=== PATIENT | female | born 1945 | race Caucasian/White ===

== ENCOUNTER → 2019-11-27 14:02 | Outpatient (POV) | payer MEDICARE, SELFPAY | PROVIDERS: PCP Family Medicine; Visit Provider Dermatology | DX: Z00.00 Encounter for general adult medical examination without abnormal findings (principal) ==

== ENCOUNTER 2024-03-31 01:47 | Emergency (ER) | payer MEDICARE, SELFPAY ==
[2024-03-31] VITALS (31 sets, daily range): BP systolic 57–124; BP diastolic 25–62; PULSE 100–128; RESP 18–26; TEMP 35–37.2; O2SAT 97–100; BMI 24.9
--- NOTE | 2024-03-31 01:43 | ECG_ITS ---
APPROVED REPORT Exam: Resting ECG HR:65 bpm ECG Measurements Heart Rate 65 AXES QRSd 199 QRS 99 QT 419 T 32 QTc 430 Conclusion ATRIAL FIBRILLATION WITH ABERRANT CONDUCTION OR VENTRICULAR PREMATURE COMPLEXES INTRAVENTRICULAR CONDUCTION DELAY [130+ ms QRS DURATION] POSSIBLE RIGHT VENTRICULAR HYPERTROPHY [SOME/ALL OF: PROMINENT R IN V1, LATE TRANSITION, RAD, ELIS, SSS] ABNORMAL ECG UNCONFIRMED REPORT Electronically signed by : JOSE ALFREDO LUX, 04/01/2024 02:36:01
[2024-03-31] MEDS: LACTATED RINGERS 1000ML 1,000 ML 999 ML IV ×3 (01:45→02:31)
[2024-03-31] MEDS: INSULIN HUMAN REGULAR 100 UNITS/ML 10ML VIAL 10 UNIT IVP (01:55)
[2024-03-31] MEDS: SODIUM BICARB 8.4% 50ML SYRINGE (CRASH CART) 100 MEQ IV (01:55)
[2024-03-31] MEDS: CALCIUM GLUC IN NACL, ISO-OSM 1 GM/50 ML BAG IV (01:56)
[2024-03-31] MEDS: EPINEPHrine 1MG/ML 30ML VIAL IV (01:58)
[2024-03-31] MEDS: ETOMIDATE 40MG/20ML VIAL 20 MG IV (02:10)
[2024-03-31] MEDS: ROCURONIUM BROMIDE 50MG/5ML VIAL 60 MG IV (02:11)
[2024-03-31] MEDS: propofoL 100 ML 7.89 MG IV (02:18)
--- NOTE | 2024-03-31 02:19 | XR_ITS ---
PROCEDURE INFORMATION: Exam: XR Chest Exam date and time: 03/31/2024 2:20 AM Age: 78 years old Clinical indication: Other: AMS; Additional info: AMS, intubation TECHNIQUE: Imaging protocol: Radiologic exam of the chest. Views: 1 view. COMPARISON: No relevant prior studies available. FINDINGS: Tubes, catheters and devices: ET tube is in good position. Lungs: The lungs are clear. Pleural spaces: Unremarkable. No pleural effusion. No pneumothorax. Heart/Mediastinum: Unremarkable. No cardiomegaly. Bones/joints: Unremarkable. IMPRESSION: ET tube is in good position. The lungs are clear.
--- NOTE | 2024-03-31 02:23 | HMH.EDGENADL ---
Discharge Plan Disposition Patient Disposition: Xfer Other Referrals Follow up/Referrals: Provider,Referral, MD [Primary Care Provider] - See instructions Clinical Impressions Clinical Impression: DKA (diabetic ketoacidosis), AMS (altered mental status), Shock circulatory Stand Alone Forms Stand Alone Forms: Transfer Record - ED Instructions Patient Instructions: DI for Altered Mental Status Print Language Print Language: [place] Discharge ED Provider: Selvin Natarajan General Adult HPI General Chief complaint: Altered Mental Status Stated complaint: hyperglycemia Time Seen by Provider: 03/31/24 01:50 History of Present Illness HPI narrative: 78-year-old female with history of insulin-dependent diabetes, hypertension hypercholesterolemia, rehab admission for recent right hip fracture presents with altered mental status and shock presumably in DKA. History obtained from EMS, family, nursing report. Patient has reportedly been feeling more dry and was concerned that she had a yeast infection according to the daughter. EMS was called to the rehab facility for unresponsive patient. On EMS arrival she was hypoxic in the 70s, hypotensive with systolic in the 50s, minimally responsive, blood sugar too high to read. Related Data Allergies Allergy/AdvReac Type Severity Reaction Status Date / Time No Known Allergies Allergy Verified 03/31/24 02:53 [facility] Disclaimer: The information contained in this section may have been updated after the patient was seen, as this information can be updated by other users. Social History Smoking Status: Unknown if ever smoked alcohol intake: never current occupational status: retired Travel in the last 8 weeks: None ROS Obtained: Yes All systems reviewed & no additional complaints except as documented Physical Exam General General appearance: obtunded Comment: No response to pain Head Head exam: atraumatic and normocephalic Eye Eye exam: Present normal appearance, PERRL and EOMI ENT ENT exam: Present mucous membranes dry; Absent normal oropharynx Neck Neck exam: Present normal inspection and full ROM Chest Chest inspection: Present normal inspection and symmetric chest wall rise Respiratory Respiratory exam: Present respiratory distress (Irregular deep breathing) Cardiovascular Cardiovascular exam: Present tachycardia and irregular rhythm Abdominal Exam Abdominal exam: Present soft; Absent distention or guarding Extremities Exam Extremities exam: Present normal inspection; Absent edema or joint swelling Back Exam Back exam: Present normal inspection; Absent tenderness Neurological Exam Neurological exam: Present other (GCS 6, no response to painful stimuli) Skin Skin exam: Present warm and pallor Lymphatic Lymphatic Findings: no adenopathy Medical Decision Making Medical Records Medical records reviewed: Yes I reviewed the patient's medical records. Screening: Per USPSTF and CDC recommendations, given the prevalence of disease in our region, it is our hospital?s policy to screen for HIV and viral Hepatitis for all patients aged 18 and over and those with ongoing risk factors. Dov Inquiry Pt receiving controlled substance: No Dov was queried for this patient: No Vital Signs: 03/31/24 01:47 03/31/24 02:30 03/31/24 02:36 Temperature 95.7 F L 95.0 F L 95.0 F L Temperature Source Rectal Pulse Rate 125 H 125 H Pulse Rate [Apical] 100 H Respiratory Rate 26 H 24 24 Blood Pressure 118/47 L 114/47 L Blood Pressure [Right Arm] 57/25 L Blood Pressure Mean [Right Arm] 35 Blood Pressure Source [Right Arm] Automatic Cuff Blood Pressure Position [Right Arm] Supine 02 Sat by Pulse Oximetry 100 100 100 Oxygen Delivery Method Non-Rebreather 03/31/24 02:39 03/31/24 02:40 03/31/24 02:40 Temperature 95.0 F L Temperature Source Pulse Rate 124 H Pulse Rate [Apical] Respiratory Rate 24 24 Blood Pressure 112/46 L Blood Pressure [Right Arm] Blood Pressure Mean [Right Arm] Blood Pressure Source [Right Arm] Blood Pressure Position [Right Arm] 02 Sat by Pulse Oximetry 100 100 100 Oxygen Delivery Method Mechanical Ventilation 03/31/24 02:45 03/31/24 02:48 03/31/24 02:54 Temperature 95.0 F L 95.0 F L 95.0 F L Temperature Source Pulse Rate 124 H 123 H 121 H Pulse Rate [Apical] Respiratory Rate 24 24 25 H Blood Pressure 112/49 L 112/46 L 113/49 L Blood Pressure [Right Arm] Blood Pressure Mean [Right Arm] Blood Pressure Source [Right Arm] Blood Pressure Position [Right Arm] 02 Sat by Pulse Oximetry 100 100 98 Oxygen Delivery Method 03/31/24 02:57 03/31/24 03:00 03/31/24 03:06 Temperature 95.0 F L 95.2 F L 95.2 F L Temperature Source Pulse Rate 128 H 124 H 123 H Pulse Rate [Apical] Respiratory Rate 24 24 24 Blood Pressure 124/51 L 111/43 L 111/46 L Blood Pressure [Right Arm] Blood Pressure Mean [Right Arm] Blood Pressure Source [Right Arm] Blood Pressure Position [Right Arm] 02 Sat by Pulse Oximetry 99 97 100 Oxygen Delivery Method 03/31/24 03:12 Temperature 95.4 F L Temperature Source Pulse Rate 123 H Pulse Rate [Apical] Respiratory Rate 24 Blood Pressure 112/47 L Blood Pressure [Right Arm] Blood Pressure Mean [Right Arm] Blood Pressure Source [Right Arm] Blood Pressure Position [Right Arm] 02 Sat by Pulse Oximetry 100 Oxygen Delivery Method Lab Data Lab results reviewed: Yes I reviewed the patient's lab results. Lab Results 03/31/24 01:40: WBC 15.4 H, RBC 3.01 L, Hgb 9.8 L, Hct 36.8 L, MCV 122.3 H, MCH 32.6 H, MCHC 26.6 L, RDW 11.6, Plt Count 683 H, MPV 10.8 H, Neut % (Auto) 82.8 H, Lymph % (Auto) 11.2, [place] % (Auto) 3.8, Eos % (Auto) 0.1, Baso % (Auto) 0.5, Neut # (Auto) 12.7 H, Lymph # (Auto) 1.7, [place] # (Auto) 0.6, Eos # (Auto) 0.0, Baso # (Auto) 0.1, Total Counted 100, Neutrophils % (Manual) 78 H, Lymphocytes % (Manual) 17, Monocytes % (Manual) 5, Platelet Estimate Normal, RBC Morphology Normal, PT 11.1, INR 0.99, Sodium 124 L, Potassium 9.1 H*, Chloride 85 L, Carbon Dioxide < 5 L*, Anion Gap 43.1 H, BUN 36 H, Creatinine 2.30 H, Estimated GFR 20 L, Est GFR ( Amer) 25 L, Glucose 1207 H*, Calcium 9.2, Magnesium 2.5 H, Total Bilirubin 1.1, AST 60 H, ALT 46, Alkaline Phosphatase 130 H, Total Creatine Kinase 97, Troponin I 0.03, Total Protein 6.1 L, Albumin 3.8, Globulin 2.3, Albumin/Globulin Ratio 1.7, Lipase 89, TSH 1.32, Thyroxine (T4) 9.1, Acetone Level Small 03/31/24 01:47: Hemoglobin A1c 9.7 H, Phosphorus 12.8 H, Magnesium 2.4 H, Urine Color Yellow, Urine Appearance Clear, Urine pH 6.0, Ur Specific [place] 1.010, Urine Protein Negative, Urine Glucose (UA) 2+, Urine Ketones 2+, Urine Blood Trace-i, Urine Nitrate Negative, Urine Bilirubin Negative, Urine Urobilinogen 0.2, Ur Leukocyte Esterase Negative, Urine RBC Occasional, Urine WBC None, Ur Squamous Epith Cells None, Urine Bacteria None, Urine Opiates Screen Negative, Urine Methadone Screen Negative, Ur Barbituates Screen Negative, Ur Phencyclidine Scrn Negative, Ur Amphetamines Screen Negative, U Benzodiazepines Scrn Negative, Urine Cocaine Screen Negative, U Marijuana (THC) Screen Negative 03/31/24 02:20: VBG pH 6.81 L, VBG pCO2 29.5 L, VBG pO2 51.2 H, VBG HCO3 4.5 L, VBG Total CO2 5.5 L, VBG O2 Saturation 60.2, VBG Base Excess -29.9 L, VBG Lactic Acid 11.9 H 03/31/24 02:47: VBG pH 6.99 L, VBG pCO2 33.5 L, VBG pO2 140.5 H, VBG HCO3 7.9 L, VBG Total CO2 8.9 L, VBG O2 Saturation 97.7 H, VBG Base Excess -23.6 L, VBG Lactic Acid 13.0 H 03/31/24 04:15: Sodium 132 L, Potassium 5.7 H D, Chloride 94 L, Carbon Dioxide 11 L, Anion Gap 32.7 H, BUN 35 H, Creatinine 1.80 H D, Estimated Creat Clear 26, Estimated GFR 27 L, Est GFR ( Amer) 33 L D, Glucose , Calcium 10.0 03/31/24 04:19: VBG pH 7.23 L, VBG pCO2 29.6 L, VBG pO2 86.7 H, VBG HCO3 12.1 L, VBG Total CO2 13.0 L, VBG O2 Saturation 95.1 H, VBG Base Excess -15.4 L, VBG Lactic Acid 8.0 H 03/31/24 01:40 03/31/24 04:15 Orders (Tests/Meds): ED MEDICATIONS Generic Name Dose Route Start Last Admin Trade Name Freq PRN Reason Stop Dose Admin Insulin Human Regular 100 unit 101 mls @ 7.07 mls/hr 03/31/24 03:00 03/31/24 02:54 / Sodium Chloride IV 04/30/24 02:59 7 unit/hr .[id number] ARLINE 7.07 mls/hr Administration Protocol 7 UNIT/HR Sodium Bicarbonate 150 meq/ 1,150 mls @ 100 mls/hr 03/31/24 03:30 03/31/24 03:14 Sodium Chloride IV 04/30/24 03:29 100 mls/hr .[id number] ARLINE Administration Norepinephrine/Dextrose 8 mg in 250 mls @ 15 mls/hr 03/31/24 04:45 03/31/24 04:54 Levophed 8mg/250ml-D5w Premix IV 04/30/24 04:44 8 mcg/min .[id number] ARLINE 15 mls/hr Administration Protocol 8 MCG/MIN Propofol 100 mls @ 3.946 mls/hr 03/31/24 05:09 03/31/24 04:42 Diprivan 10mg/Ml 100ml Bottle IV 04/30/24 05:08 20 mcg/kg/min .Q24H ARLINE 7.89 mls/hr Titration Protocol 10 MCG/KG/MIN Vancomycin/PEG/NADA/Lysine/Water 1.25 gm in 250 mls @ 125 mls/hr 03/31/24 05:15 Vancomycin 1.25gm/250ml (Peg) Premix IV 03/31/24 07:14 ONCE ONE Miscellaneous 1 each 03/31/24 02:30 03/31/24 05:13 Vancomycin Consult Request NOTAPPLIC 04/30/24 02:29 1 each CONSULT PHARMACY ARLINE Administration Sodium Chloride 3 ml 03/31/24 02:58 Sodium Chloride 3% 15ml Neb IH 04/30/24 02:57 ONCE PRN INDUCE SPUTUM COLLECTION Discontinued Medications Generic Name Dose Route Start Last Admin Trade Name Freq PRN Reason Stop Dose Admin Epinephrine HCl 0.1 mg 03/31/24 01:58 03/31/24 01:58 Epinephrine 1mg/Ml 30ml Vial IV 03/31/24 01:59 0.1 mg ONCE ONE Administration Etomidate 20 mg 03/31/24 02:21 03/31/24 02:10 Etomidate 40mg/20ml Vial IV 03/31/24 02:22 20 mg ONCE ONE Administration Lactated Ringer's 1,000 mls @ 999 mls/hr 03/31/24 02:30 03/31/24 02:31 Lactated Ringer's 1000 Ml Bag IV 03/31/24 05:30 999 mls/hr .Q1H1M ARLINE Administration Piperacillin Sod/Tazobactam 100 mls @ 200 mls/hr 03/31/24 02:22 03/31/24 06:59 Sod 4.5 gm/ Sodium Chloride IV 03/31/24 02:51 200 mls/hr ONCE ONE Administration Calcium Gluconate/Sodium Chloride 1 gm in 50 mls @ 50 mls/hr 03/31/24 02:34 03/31/24 01:56 Calcium Gluconate 1,000mg/50ml Nacl Premix IV 03/31/24 03:33 50 mls/hr ONCE ONE Administration Sodium Bicarbonate 150 meq/ 1,150 mls @ 100 mls/hr 03/31/24 02:59 03/31/24 03:41 Dextrose IV 04/30/24 02:58 Not Given .[id number] [facility] Insulin Human Regular 10 unit 03/31/24 02:20 03/31/24 01:55 Insulin Human Regular 100 Units/Ml 10ml Vial IVP 03/31/24 02:21 10 unit ONCE ONE Administration Rocuronium [place] 60 mg 03/31/24 02:20 03/31/24 02:11 Rocuronium [place] 50mg/5ml Vial IV 03/31/24 02:21 60 mg ONCE ONE Administration Sodium Bicarbonate 100 meq 03/31/24 02:20 03/31/24 01:55 Sodium Bicarb 8.4% 50ml Syringe (Crash Cart) IV 03/31/24 02:21 100 meq ONCE ONE Administration ORDERS Category Date Time Status CXR --portable [XR chest portable] Stat Exams 03/31/24 02:19 Completed CXR --portable [XR chest portable] Stat Exams 03/31/24 02:34 Completed CXR --portable [XR chest portable] Stat Exams 03/31/24 04:36 Completed Acetone, Serum (Rapid) Stat Lab 03/31/24 01:40 Completed BMP [Basic Metabolic Panel] Stat Lab 03/31/24 04:15 Completed CBC w/Auto Diff [Complete Blood Count Auto Diff] Stat Lab 03/31/24 01:40 Completed CK [Creatine Kinase] Stat Lab 03/31/24 01:40 Completed CMP [Comprehensive Metabolic Panel] Stat Lab 03/31/24 01:40 Completed Hemoglobin A1C Stat Lab 03/31/24 01:47 Completed INR [Prothrombin Time INR] Stat Lab 03/31/24 01:40 Completed Lipase Stat Lab 03/31/24 01:40 Completed Magnesium Stat Lab 03/31/24 01:40 Completed Magnesium Stat Lab 03/31/24 01:47 Completed POC Glucose,Bedside Stat Lab 03/31/24 04:02 Ordered Phosphorous Stat Lab 03/31/24 01:47 Completed T4 (Thyroxine) Stat Lab 03/31/24 01:40 Completed TSH [Thyroid Stimulating Hormone] Stat Lab 03/31/24 01:40 Completed Troponin I Q3H Lab 03/31/24 01:40 Completed UA [Urinalysis and Microscopic] Stat Lab 03/31/24 01:47 Completed UDS [Drug Screen,Urine] Stat Lab 03/31/24 01:47 Completed Blood Culture Stat Micro 03/31/24 02:47 Ordered Sputum Culture & Gram Stain Stat Micro 03/31/24 02:56 Results Urine Culture Stat Micro 03/31/24 01:47 Received VBG [Venous Blood Gas] Stat RT 03/31/24 02:20 Completed VBG [Venous Blood Gas] Stat RT 03/31/24 02:47 Completed VBG [Venous Blood Gas] Stat RT 03/31/24 04:19 Completed ECG Data Tracing #1: I reviewed this ECG and interpreted as documented below: Irregular bradycardic ventricular rhythm, no P waves noted, peaked T waves, wide QRS concerning for severe hyperkalemia ECG initial impression date: 03/31/24 ECG initial impression time: 01:44 Tracing #2: I reviewed this ECG and interpreted as documented below: Sinus tachycardia with rate of 125, T waves no longer peaked, QRS improved, now normal/borderline prolonged ECG initial impression date: 03/31/24 ECG initial impression time: 02:36 Tissue Perfus/Sepsis Re-Eval Sepsis Re-Evaluation Performed: Yes Date Performed: 03/31/24 Time Performed: 04:52 Medical Decision Narrative: 78-year-old female with history of insulin-dependent diabetes, hypertension presents from rehab facility in [place] presumably from DKA. History was obtained via interactive discussion with EMS, nursing facility,. On arrival, patient is afebrile, hypotensive with manual systolic in the 50s, hypoxic requiring nonrebreather, minimally responsive with GCS 6, blood sugar reading too high. EKG on arrival shows peaked T waves with wide QRS and irregular rhythm concerning for hyperkalemia. VBG confirms with potassium over 8, pH 6.8, bicarb undetectably low, glucose too high to read. Differential includes but is not limited to DKA, septic shock, WI, PE. Patient was initiated on multiple interventions includin L lactated ringer 2 Amp of bicarb push 1 g calcium gluconate push 10 units insulin IV push Insulin drip Bicarb drip Propofol drip Levophed drip Vancomycin Zosyn Intubation for airway protection Right IJ central Left radial arterial line Immediate interventions were made for hyperkalemia and hypotension after which EKG improved from wide-complex bradycardia to sinus tachycardia and she had significant improvement in blood pressure. Patient was intubated for airway protection after hemodynamic improvement. Intubation was somewhat traumatic. We were initially unable to visualize the airway and noted that she had a dental bridge that was deep in her oropharynx. Patient sustained oropharyngeal laceration with minimal bleeding while trying to pull it out. It may be that swallowing her bridge was the precipitating factor that caused her to severe hypoxia prior to arrival. Patient was intubated with a 7.5 ET tube. This required some pressure to get through the cords, likely at the upper limit of ET tube size for this patient. Patient required bagging twice during intubation. Initial labs significant for pH 6.8, lactate 12, bicarb undetectably low, pCO2 29, potassium 9, sodium 127, creatinine 2.3 (baseline 1.2). Repeat VBG 1 hour later after intubation and interventions shows pH 6.98, potassium 6.29, pCO2 33, lactate 13 Repeat VBG 1.5 hours later shows pH 7.23, lactate of 8, bicarb improving, potassium 5.7, creatinine 1.8. The bicarb drip was discontinued. Urine does not show evidence of infection. Several chest x-rays were obtained after interventions and interpreted by me, shows appropriate ET tube, OG tube, right IJ central line placement. No lung consolidation noted. Patient remains hypotensive despite over 3 L fluid resuscitation. She is initiated on Levophed. Given patient history, exam and workup, patient's presentation most likely represents severe DKA. She is also being treated for septic shock with vancomycin, Zosyn, Levophed. We tried to transfer patient to [facility] [place] where she had her hip surgery but they report that they are full and have a prolonged wait list. We called the [facility] who graciously accepted the patient for further evaluation and management. Procedures Risk/Benefits of Procedure(s) Were Explained: Yes Intubation Mallampati Score:: Class II Time out performed: Yes sedative: Etomidate Mg Given: 20 paralytic: Rocuronium Mg Given: 60 Laryngoscope: Dada Assist Device Used: fiber optic device ET Tube Size: 7.5 ET Tube Uncuffed: Yes Tube Placement Confirmation: visualized tube passing through cords and equal breath sounds bilaterally Intubation Complications: other (Patient had a dental bridge lodged in her oropharynx that obstructed her airway on initial attempt.) Central Line Placement Right IJ: Time Out Performed: Yes Patient Placed on Monitor/Pulse Ox: Yes MD Prep: mask, gown and gloves Central Line Prep: Chlorhexidine scrub Ultrasound Used for Placement: Yes Central Line Lumen Inserted: triple Post Procedure: sutured in place, good blood return, all ports aspirated, flushed, capped and sterile dressing applied Post Procedure X-Ray: tip of catheter in good position and no pneumothorax seen Patient Tolerated Procedure: well and no complications Complications: none Arterial Line Time Out Performed: Yes Size (Gauge): 20 Technique Used: guide wire technique Post-Procedure: line sutured into place and dry sterile dressing placed Patient Tolerated Procedure: well Complications: none Site: left and radial Critical Care Critical Care Time Critical Care Time: Yes Attestation: On 03/31/24, the high probability of a clinically significant, sudden or life threatening deterioration of the following system(s) required my full and direct attention, intervention and personal management. The time I documented below is in addition to time spent performing reported procedures but includes the following listed in this critical care notation. Total Time Total Critical Care Time: 75
[2024-03-31 02:28] LABS: Basophils # 0.1 K/mm3 (0-0.2); Basophils % 0.5 % (0.1-2.0); Eosinophils % 0.1 % (0.1-12.0); Hematocrit 36.8 % (37.0-47.0); Hemoglobin 9.8 g/dL (12.2-16.2); Lymphocytes # 1.7 K/mm3 (0.7-4.5); Lymphocytes % 11.2 % (10-50); Mean Corpuscular HGB Conc 26.6 g/dL (31.8-35.4); Mean Corpuscular Hemoglobin 32.6 pg (27.0-31.2); Mean Corpuscular Volume 122.3 fl (81-99); Mean Platelet Volume 10.8 fl (7.4-10.4); Monocytes # 0.6 K/mm3 (0.1-1.0); Monocytes % 3.8 % (1.7-9.3); Neutrophils # 12.7 K/mm3 (1.8-7.8); Neutrophils % 82.8 % (37.0-80.0); Platelet Count 683 K/mm3 (142-424); Red Blood Count 3.01 M/mm3 (4.20-5.40); Red Cell Distribution Width 11.6 % (11.5-17.5); White Blood Count 15.4 K/mm3 (4.8-10.8)
[2024-03-31 02:29] LABS: Microscopic, Urine URINE MICROSCOPIC (MICROSCOPIC)
[2024-03-31 02:29] LABS: Acetone, Serum (Rapid) Small (None Detect)
[2024-03-31 02:31] LABS: Appearance,Urine CLEAR (Clear); Bilirubin,Urine Negative (Negative); Blood, Urine TRACE-I (Negative); Color,Urine YELLOW (Yellow); Glucose,Urine (UA) 2+ (Negative); Ketones,Urine 2+ (Negative); Leukocyte Esterase,Urine Negative (Negative); Nitrate,Urine Negative (Negative); Protein,Urine Negative (Negative); Urobilinogen,Urine 0.2 EU/dl (0.2)
[2024-03-31 02:32] LABS: Albumin Level 3.8 g/dl (3.5-5.0); Chloride 85 mmol/L (98-107); Sodium 124 mmol/L (136-145)
[2024-03-31 02:33] LABS: MANUAL DIFFERENTIAL MANUAL DIFFERENTIAL (MANUAL DIFF)
[2024-03-31 02:34] LABS: INR 0.99 (0.9-1.1); Prothrombin Time 11.1 seconds (10.1-12.5)
--- NOTE | 2024-03-31 02:34 | XR_ITS ---
PROCEDURE INFORMATION: Exam: XR Chest Exam date and time: 03/31/2024 2:37 AM Age: 78 years old Clinical indication: Other: AMS; Additional info: Line placement, et tube adjustment TECHNIQUE: Imaging protocol: Radiologic exam of the chest. Views: 1 view. COMPARISON: CR XR CHEST PORTABLE 03/31/2024 2:20 AM FINDINGS: Tubes, catheters and devices: The ET tube and nasogastric tube are in good position. Lungs: The lungs remain clear. Pleural spaces: Unremarkable. No pleural effusion. No pneumothorax. Heart/Mediastinum: Unremarkable. No cardiomegaly. Bones/joints: Unremarkable. IMPRESSION: The ET tube and nasogastric tube are in good position. The lungs remain clear.
[2024-03-31 02:35] LABS: Alanine Aminotransferase 46 U/L (12-78); Albumin/Globulin Ratio 1.7 (1.1-1.8); Alkaline Phosphatase 130 U/L (38-126); Aspartate Amino Transferase 60 U/L (14-36); Bilirubin,Total 1.1 mg/dl (0.2-1.3); Blood Urea Nitrogen 36 mg/dl (7-17); Calcium 9.2 mg/dl (8.4-10.2); Creatine Kinase 97 U/L (30-135); Estimated Glomerular Filt Rate 20 ml/min (>60); GFR (African American) 25 ML/MIN (>60); Globulin 2.3 g/dL (1.3-3.2); Lipase 89 U/L (23-300); Magnesium 2.5 mg/dl (1.6-2.3); Total Protein,Serum 6.1 g/dl (6.3-8.2)
--- NOTE | 2024-03-31 02:36 | ECG_ITS ---
APPROVED REPORT Exam: Resting ECG HR:125 bpm ECG Measurements Heart Rate 125 AXES QRSd 109 QRS 84 QT 330 T -12 QTc 404 Conclusion ATRIAL FLUTTER/TACHYCARDIA WITH RAPID VENTRICULAR RESPONSE LOW QRS VOLTAGE IN PRECORDIAL LEADS [QRS DEFLECTION < 1.0 mV IN CHEST LEADS] NONSPECIFIC ST & T-WAVE ABNORMALITY ABNORMAL ECG UNCONFIRMED REPORT Electronically signed by : JOSE ALFREDO LUX, 04/01/2024 02:35:35
[2024-03-31 02:41] LABS: Anion Gap 43.1 mEq/L (5-15)
[2024-03-31 02:42] LABS: Barbiturates Screen,Urine Negative ng/ml (<200)
[2024-03-31 02:43] LABS: Benzodiazepines Screen,Urine Negative ng/ml (<200)
[2024-03-31 02:43] LABS: Carbon Dioxide < 5 mmol/L (22.0-30.0); Glucose 1207 mg/dl (74-100); Potassium 9.1 mmoL/L (3.5-5.1)
[2024-03-31 02:44] LABS: Amphetamine/Metha Screen,Urine Negative ng/ml (<1000); Cannabinoid Screen,Urine Negative ng/ml (<50)
[2024-03-31 02:45] LABS: Cocaine Screen,Urine Negative ng/ml (<300)
[2024-03-31 02:46] LABS: Methadone Screen,Urine Negative ng/ml (<300)
[2024-03-31 02:47] LABS: Opiate Screen,Urine Negative ng/ml (<300); Phencyclidine Screen,Urine Negative ng/ml (<25)
[2024-03-31 02:48] LABS: Troponin I 0.03 ng/ml (0.00-0.034)
[2024-03-31 02:48] LABS: RBC,Urine Occasional #/hpf (0-3)
[2024-03-31 02:53] LABS: T4 (Thyroxine) 9.1 ug/dl (5.53-11.0)
[2024-03-31] MEDS: INSULIN REGULAR, HUMAN 100 UNIT in 0.9 % SODIUM CHLORIDE 100 ML 7.07 UNIT IV (02:54)
[2024-03-31 02:56] LABS: Lymphocytes % 17 % (10-50); Monocytes % 5 % (2-9); Neutrophils % 78 % (42-76); Platelet Estimate Normal; RBC Morphology Normal; Total Cells Counted 100
[2024-03-31 02:58] LABS: Magnesium 2.4 mg/dl (1.6-2.3); Phosphorous 12.8 mg/dl (2.5-4.5)
[2024-03-31 03:04] LABS: Hemoglobin A1C 9.7 % (4.0-6.0)
[2024-03-31 03:05] LABS: VBG Base Excess -29.9 mmol/L (-2.4-2.3); VBG HCO3 4.5 mmol/L (23-30); VBG Oxygen Saturation 60.2 % (50-70); VBG PCO2 29.5 mmol/L (35-51); VBG PO2 51.2 mmol/L (28-40); VBG Total CO2 5.5 mmol/L (23-27)
[2024-03-31 03:06] LABS: VBG Base Excess -23.6 mmol/L (-2.4-2.3); VBG HCO3 7.9 mmol/L (23-30); VBG Oxygen Saturation 97.7 % (50-70); VBG PCO2 33.5 mmol/L (35-51); VBG PO2 140.5 mmol/L (28-40); VBG Total CO2 8.9 mmol/L (23-27)
[2024-03-31 03:06] LABS: VBG PH 6.81 mmol/L (7.31-7.41)
[2024-03-31 03:07] LABS: Lactate Venous 11.9 mmol/L (0.4-2.0)
[2024-03-31 03:07] LABS: VBG PH 6.99 mmol/L (7.31-7.41)
[2024-03-31 03:10] LABS: Thyroid Stimulating Hormone 1.32 uIU/mL (0.465-4.68)
[2024-03-31] MEDS: SODIUM BICARBONATE 150 MEQ in SODIUM CHLORIDE 0.45 % 1,000 ML 100 MEQ IV (03:14)
--- NOTE | 2024-03-31 03:28 | PC.NURSE ---
Verified Bicarb drip okay to infuse with Insulin drip with Anastasiia at [facility]. Anastasiia also is changing Bicarb drip with 1/2 NS per MD order on
[2024-03-31 04:25] LABS: Chloride 94 mmol/L (98-107); Potassium 5.7 mmoL/L (3.5-5.1); Sodium 132 mmol/L (136-145)
[2024-03-31 04:28] LABS: VBG Base Excess -15.4 mmol/L (-2.4-2.3); VBG HCO3 12.1 mmol/L (23-30); VBG Oxygen Saturation 95.1 % (50-70); VBG PCO2 29.6 mmol/L (35-51); VBG PH 7.23 mmol/L (7.31-7.41); VBG PO2 86.7 mmol/L (28-40)
[2024-03-31 04:28] LABS: Anion Gap 32.7 mEq/L (5-15); Blood Urea Nitrogen 35 mg/dl (7-17); Carbon Dioxide 11 mmol/L (22.0-30.0); Creatinine Clearance Estimated 26 mL/min (50-200); Estimated Glomerular Filt Rate 27 ml/min (>60); GFR (African American) 33 ML/MIN (>60)
--- NOTE | 2024-03-31 04:36 | XR_ITS ---
PROCEDURE INFORMATION: Exam: XR Chest Exam date and time: 03/31/2024 4:41 AM Age: 78 years old Clinical indication: Other: AMS; Additional info: Line placement TECHNIQUE: Imaging protocol: Radiologic exam of the chest. Views: 1 view. COMPARISON: CR XR CHEST PORTABLE 03/31/2024 2:37 AM FINDINGS: Tubes, catheters and devices: The ET tube, central venous catheter, and nasogastric tube are in good position. Central venous catheter distal tip overlies the right atrium. Lungs: Unremarkable. No consolidation. Pleural spaces: Unremarkable. No pleural effusion. No pneumothorax. Heart/Mediastinum: Unremarkable. No cardiomegaly. Bones/joints: Unremarkable. IMPRESSION: The ET tube, central venous catheter, and nasogastric tube are in good position. Central venous catheter distal tip overlies the right atrium.
[2024-03-31] MEDS: NOREPINEPHRINE BITARTRATE/D5W 8 MG/250 ML PLAST..BAG 15 MG IV (04:54)
--- NOTE | 2024-03-31 04:59 | PC.NURSE ---
CALLED REPORT TO FABIO @[facility] ICU
--- NOTE | 2024-03-31 04:59 | PC.NURSE ---
INTUBATION/CRITICAL CARE NOTE 0145- FS reading HI on glucometer, pressure bag placed on LR 0149- 99% HR100 RR-21 temp 95.7 per temp sensing lee 0153- 2nd bag LR hung and pressure bag in place. 0155 BP 57/25 0155- 10 units regular insulin given IV 0155- 2 amps bicarb given IV 0156- 1gm calcium gluconate given IV 0156- vbg results given to md short by RT 0158- 0.1mg epi given IV 0200- 18G USG IV to R upper arm placed by Delgado SULTANA 0202- 18G USG IV to R upper arm placed by Delgado SULTANA 0210- 20mg etomidate given 0211 60mg shant given 0216- pt intubated by MD Short. 7.5 ETT, 22@the teeth, color change noted, bilat breath sounds auscultated 0218- propofol started @20mcg/kg/min 0219- xray at bs 0221- FS HI 0222- vent hooked up. settings FIO2 100% peep5 RR24 TV 445 0231- 3rd bag LR running and pressure bag in place. 0232- OG tube 0253 vbg results given to MD Short by RT 0300- OG tube @55cm, gastric sounds auscultated 0314- bicarb gtt started 0330 zosyn given [place] 0354 propofol decreased to 15mcg/kg/min r/t pts BP 0415- 7fr triple lumen central line placed to R Jugular vein by Delgado SULTANA 0425- art line placed to L Radial artery by MD Short 0438- bicarb gtt d/c 0442- pt moving and tearful. prop increased to 20mcg/kg/min 0454- levophed gtt started @4mcg/min OG to LWS
--- NOTE | 2024-03-31 05:10 | PC.NURSE ---
[facility] en route. Will arrive in 19 minutes.
[2024-03-31] MEDS: VANCOMYCIN CONSULT REQUEST 1 EACH NOTAPPLIC (05:13)
[2024-03-31] MEDS: PIPERACILLIN/TAZO 4.5 GM in 0.9 % SODIUM CHLORIDE 100 ML IV (06:59)
[2024-03-31 07:05] LABS: Reflex Lactic Add Lactic Reflex
== END 2024-03-31 06:20 | disposition other institution (70) ==
PROVIDERS: Emergency Provider Emergency Medicine
DX: R57.9 Shock, unspecified (principal); E11.10 Type 2 diabetes mellitus with ketoacidosis without coma; R41.82 Altered mental status, unspecified; E11.65 Type 2 diabetes mellitus with hyperglycemia; R09.02 Hypoxemia; Z79.4 Long term (current) use of insulin
CPT/HCPCS: 31500; 51702; 71045; 80048; 80053; 80307; 81001; 82009; 82550; 82803; 83036; 83690; 83735; 84100; 84436; 84443; 84484; 85007; 85025; 85027; 85610; 87070; 87086; 87205; 93005; 96361; 96365; 96374; 99291; C1751; J2543; J2704; J7120